=== PATIENT | male | born 1965 | race Asian ===

== ENCOUNTER 2016-12-17 04:20 | Inpatient (IN) | payer OTHER ==
[2016-12-16 14:50] LABS: HEMOGLOBIN 15.9 g/dL (13.7-18.0)
[2016-12-16 14:57] LABS: ASPARTATE AMINO TRANSFERASE 24 U/L (15-37); BLOOD UREA NITROGEN 11 mg/dL (7-18)
[~2016-12-17] VITALS: Ht 165.1 cm; Wt 89.2 kg
[~2016-12-17 04:20] MED LIST: ASPI-496 PO; CARV6.2512 PO; CLOB15CR19 TD; INSU100I28 SC; ISOS30TA19 PO; LISI-170 PO; ROSU40TA PO; SILD50TA PO; VITA100020 PO; VITA1CAP PO
[2016-12-17] MEDS ORDERED: ALBUMIN HUMAN 5% 500 ML IV ONE (04:30)
[2016-12-17] MEDS ORDERED: DO NOT GIVE MC SCH (05:00)
[2016-12-17] MEDS ORDERED: CHLORHEXIDINE MOUTHWASH 15 ML UDC MM SCH (05:00)
[2016-12-17] MEDS ORDERED: METOPROLOL TARTRATE 25 MG TABLET PO ONE (05:00)
[2016-12-17] MEDS ORDERED: MUPIROCIN OINT 2%, 22GM TP SCH (06:00)
[2016-12-17] MEDS ORDERED: INSULIN ASPART 100 UNITS/ML, PEN SQ-INSULIN SCH (06:00)
[2016-12-17 06:29] VITALS: BP 163/84
[2016-12-17] MEDS ORDERED: FENTANYL PF 1000 MCG/20ML ONE (07:28)
[2016-12-17] MEDS ORDERED: MIDAZOLAM 10MG/2 ML ONE (07:29)
[2016-12-17] MEDS ORDERED: PHENYLEPHRINE 10 MG in SODIUM CHLORIDE 0.9% 249 ML IV PRN ×2 (07:30→12:28)
[2016-12-17] MEDS ORDERED: POTASSIUM CHLORIDE 80 MEQ, SODIUM BICARBONATE 8.4% 10 MEQ, MAGNESIUM SULFATE 0.5 GM, LI... IV PRN (07:30)
[2016-12-17] MEDS ORDERED: REGULAR INSULIN 62.5 UNITS in SODIUM CHLORIDE 0.9% 249.375 ML IV PRN ×2 (07:30→12:28)
[2016-12-17] MEDS ORDERED: VANCOMYCIN 1,300 MG in SODIUM CHLORIDE 0.9% 250 ML IV PRN (07:30)
[2016-12-17] MEDS ORDERED: EPINEPHRINE 2 MG in SODIUM CHLORIDE 0.9% 248 ML IV SCH (07:30)
[2016-12-17] MEDS ORDERED: MANNITOL PMX 20% 500 ML IVPB PRN (07:30)
[2016-12-17] MEDS ORDERED: DEXMEDETOMIDINE 200 MCG in SODIUM CHLORIDE 0.9% 48 ML IV SCH (07:30)
[2016-12-17] MEDS ORDERED: CEFUROXIME 1.5 GM in SODIUM CHLORIDE 0.9% 50 ML IVPB PRN (07:30)
[2016-12-17] MEDS ORDERED: PAPAVERINE 30 MG/ML, 2ML IVPush ONE (08:56)
[2016-12-17] MEDS ORDERED: HEPARIN 1,000 UNITS/ML, 10ML IV ONE (08:58)
[2016-12-17] MEDS ORDERED: SODIUM CHLORIDE FLUSH 10ML SYR IVF SCH (09:00)
[2016-12-17] MEDS ORDERED: AMINOCAPROIC ACID 250 MG/ML, 20ML ONE (09:10)
[2016-12-17] MEDS ORDERED: CALCIUM CHLORIDE 10%, 10ML SYR ONE (09:10)
[2016-12-17] MEDS ORDERED: PROTAMINE SULFATE 10 MG/ML, 25ML ONE (09:10)
[2016-12-17] MEDS ORDERED: DESMOPRESSIN 24 MCG in SODIUM CHLORIDE 0.9% 50 ML IVPB ONE (11:15)
[2016-12-17] MEDS ORDERED: NITROGLYCERIN/D5W PMX 250 ML IV PRN (12:28)
[2016-12-17] MEDS ORDERED: SODIUM CHLORIDE 0.9% 1,000 ML IV ONE (12:28)
[2016-12-17] MEDS ORDERED: SODIUM CHLORIDE 0.9% 1,000 ML IV PRN (12:28)
[2016-12-17] MEDS ORDERED: DOBUTAMINE 250 MG in SODIUM CHLORIDE 0.9% 230 ML IV PRN (12:28)
[2016-12-17] MEDS ORDERED: DEXTROSE 4 GM TAB.CHEW PO PRN (12:30)
[2016-12-17] MEDS ORDERED: DEXTROSE 50%, 50ML SYRINGE IVPush PRN (12:30)
[2016-12-17] MEDS ORDERED: LACTATED RINGERS 500 ML IVBOLUS PRN (12:30)
[2016-12-17] MEDS ORDERED: SODIUM BICARB 8.4%, 50ML SYRINGE IV PRN (12:30)
[2016-12-17] MEDS ORDERED: ACETAMINOPHEN 325 MG TABLET PO PRN (12:30)
[2016-12-17] MEDS ORDERED: ONDANSETRON 2MG/ML, 2ML IVPush PRN (12:30)
[2016-12-17] MEDS: KSCALE TO 4.5 IV SCH ×2 (12:30→18:30)
[2016-12-17] MEDS ORDERED: BISACODYL 10 MG SUPP PR PRN (12:30)
[2016-12-17] MEDS ORDERED: MEPERIDINE/PF 25MG/0.5ML IVPush PRN (12:30)
[2016-12-17] MEDS ORDERED: MIDAZOLAM 1 MG/ML, 5ML IVPush PRN (12:30)
[2016-12-17] MEDS ORDERED: ACETAMINOPHEN 650 MG SUPP PR PRN (12:30)
[2016-12-17] MEDS ORDERED: GLUCAGON 1 MG IM PRN (12:30)
[2016-12-17] MEDS ORDERED: BISACODYL 5 MG EC TABLET PO PRN (12:30)
[2016-12-17] MEDS ORDERED: EPINEPHRINE 2 MG in SODIUM CHLORIDE 0.9% 248 ML IV PRN (12:30)
[2016-12-17] MEDS ORDERED: PROCHLORPERAZINE 5 MG/ML, 2ML IVPush PRN (12:30)
[2016-12-17] MEDS ORDERED: ALBUMIN HUMAN 25% 100 ML ONE (12:59)
[2016-12-17] MEDS ORDERED: LIDOCAINE 2% 100MG/5ML SYRINGE ONE (12:59)
[2016-12-17] MEDS ORDERED: HEPARIN 1,000 UNITS/ML, 30ML ONE (12:59)
[2016-12-17] MEDS ORDERED: AMIODARONE 50 MG/ML, 3ML ONE (12:59)
[2016-12-17] MEDS ORDERED: SODIUM BICARBONATE 1 MEQ/ML, 50ML VIAL ONE (12:59)
[2016-12-17] MEDS ORDERED: PAPAVERINE 30 MG/ML, 2ML ONE (13:00)
[2016-12-17] MEDS ORDERED: HEPARIN 1,000 UNITS/ML, 10ML ONE (13:00)
[2016-12-17 13:11] LABS: ABG COLLECTION SITE ARTERIAL LINE
[2016-12-17 13:13] LABS: HEMOGLOBIN 11.6 g/dL (13.7-18.0)
[2016-12-17] MEDS ORDERED: MORPHINE SULFATE 4 MG/ML, 1ML ONE (13:46)
[2016-12-17] MEDS: morphine SULFATE 10 MG/ML, 1ML IVPush PRN ×3 (13:50→22:48)
[2016-12-17] MEDS: MAGNESIUM SULFATE 1 GM in SODIUM CHLORIDE 0.9% 50 ML IVPB SCH (13:53)
[2016-12-17] MEDS ORDERED: ROCURONIUM 10 MG/ML ONE ×2 (15:13)
[2016-12-17 18:24] LABS: HEMOGLOBIN 12.2 g/dL (13.7-18.0)
[2016-12-17] MEDS ORDERED: POTASSIUM CHLORIDE PMX 100 ML IV ONE (19:30)
[2016-12-17] MEDS: OXYcodone IR 5MG TABLET PO PRN ×2 (19:58→23:03)
[2016-12-17] MEDS: CEFUROXIME 1.5 GM in SODIUM CHLORIDE 0.9% 50 ML IVPB SCH (20:31)
[2016-12-17] MEDS: VANCOMYCIN 1,300 MG in SODIUM CHLORIDE 0.9% 250 ML IVPB SCH (21:10)
[2016-12-17] MEDS: MUPIROCIN OINT 2%, 22GM NAS SCH (21:12)
[2016-12-17] MEDS: SODIUM CHLORIDE FLUSH 10ML SYR IVF SCH (21:12)
[2016-12-17] MEDS: DOCUSATE 100 MG CAPSULE PO SCH (21:12)
[2016-12-18] MEDS: KSCALE TO 4.5 IV SCH ×4 (00:30→18:30)
[2016-12-18] MEDS: morphine SULFATE 10 MG/ML, 1ML IVPush PRN ×5 (01:40→10:34)
[2016-12-18] MEDS ORDERED: POTASSIUM CHLORIDE PMX 100 ML IV ONE ×3 (02:00→14:30)
[2016-12-18] MEDS: OXYcodone IR 5MG TABLET PO PRN ×3 (02:23→08:17)
[2016-12-18 06:44] LABS: ABG COLLECTION SITE NOT DOCUMENTED
[2016-12-18 06:56] LABS: BLOOD UREA NITROGEN 13 mg/dL (7-18)
[2016-12-18] MEDS: CLEVIDIPINE 50 ML IV PRN ×3 (08:03→13:11)
[2016-12-18] MEDS: CEFUROXIME 1.5 GM in SODIUM CHLORIDE 0.9% 50 ML IVPB SCH (08:33)
[2016-12-18] MEDS: SODIUM CHLORIDE FLUSH 10ML SYR IVF SCH ×2 (09:00→20:00)
[2016-12-18] MEDS ORDERED: PANTOPRAZOLE 40 MG IV IVPush SCH (09:00)
[2016-12-18] MEDS: DOCUSATE 100 MG CAPSULE PO SCH ×2 (09:29→19:59)
[2016-12-18] MEDS: VANCOMYCIN 1,300 MG in SODIUM CHLORIDE 0.9% 250 ML IVPB SCH (09:29)
[2016-12-18] MEDS: ASPIRIN 81 MG TABLET EC PO SCH (09:29)
[2016-12-18] MEDS: MUPIROCIN OINT 2%, 22GM NAS SCH ×2 (09:29→19:58)
[2016-12-18] MEDS: METOPROLOL TARTRATE 25 MG TABLET PO/NG SCH ×2 (09:31→20:00)
[2016-12-18] MEDS: HYDROcodone/APAP 10/325 MG TABLET PO PRN (12:15)
[2016-12-18] MEDS: MAGNESIUM SULFATE 1 GM in SODIUM CHLORIDE 0.9% 50 ML IVPB SCH (12:15)
[2016-12-18] MEDS: CHLORHEXIDINE MOUTHWASH 15 ML UDC MM SCH ×2 (12:16→20:00)
[2016-12-18] MEDS ORDERED: CLEVIDIPINE 100 ML IV PRN (13:30)
[2016-12-18] MEDS: INSULIN ASPART 100 UNITS/ML, PEN SQ-INSULIN PRN ×6 (14:00→23:58)
[2016-12-19] MEDS: KSCALE TO 4.5 IV SCH ×2 (00:30→06:10)
[2016-12-19] MEDS: INSULIN ASPART 100 UNITS/ML, PEN SQ-INSULIN PRN ×5 (04:07→20:25)
[2016-12-19 04:41] LABS: BLOOD UREA NITROGEN 20 mg/dL (7-18)
[2016-12-19 04:53] LABS: ABG COLLECTION SITE RIGHT RADIAL; COLLATERAL CIRCULATION TESTING NORMAL
[2016-12-19] MEDS: HYDROcodone/APAP 10/325 MG TABLET PO PRN ×3 (06:40→18:56)
[2016-12-19] MEDS: MUPIROCIN OINT 2%, 22GM NAS SCH ×2 (08:16→20:25)
[2016-12-19] MEDS: DOCUSATE 100 MG CAPSULE PO SCH ×2 (08:16→20:26)
[2016-12-19] MEDS: ASPIRIN 81 MG TABLET EC PO SCH (08:16)
[2016-12-19] MEDS: PANTOPROZOLE 40MG TABLET PO SCH (08:16)
[2016-12-19] MEDS: SODIUM CHLORIDE FLUSH 10ML SYR IVF SCH ×3 (08:17→20:25)
[2016-12-19] MEDS ORDERED: METOPROLOL TARTRATE 25 MG TABLET PO/NG SCH (09:00)
[2016-12-19] MEDS ORDERED: CLOBETASOL PROPIONATE CRM 0.05%, 15GM TP PRN (10:00)
[2016-12-19] MEDS ORDERED: MAGNESIUM HYDROXIDE 8%, 30ML UDC PO PRN (10:00)
[2016-12-19] MEDS: ENOXAPARIN 40 MG/0.4 ML SQ SCH (10:45)
[2016-12-19] MEDS: FUROSEMIDE 20 MG/2 ML IV SCH ×2 (10:45→16:46)
[2016-12-19] MEDS: MAGNESIUM SULFATE 1 GM in SODIUM CHLORIDE 0.9% 50 ML IVPB SCH (12:08)
[2016-12-19] MEDS: CHLORHEXIDINE MOUTHWASH 15 ML UDC MM SCH ×2 (13:40→20:26)
[2016-12-19] MEDS: POTASSIUM CHLORIDE 20 MEQ TAB.ER.PRT PO SCH (16:46)
[2016-12-19] MEDS: CARVEDILOL 6.25 MG TABLET PO SCH (16:50)
[2016-12-19 17:24] VITALS: BP 127/83
[2016-12-19 18:45] VITALS: BP 151/79
[2016-12-19] MEDS: ATORVASTATIN 80 MG TABLET PO SCH (20:26)
[2016-12-20 01:44] VITALS: BP 99/66
[2016-12-20] MEDS: HYDROcodone/APAP 10/325 MG TABLET PO PRN ×3 (04:30→18:23)
[2016-12-20 05:31] LABS: BLOOD UREA NITROGEN 23 mg/dL (7-18)
[2016-12-20 07:40] VITALS: BP 126/81
[2016-12-20] MEDS: ENOXAPARIN 40 MG/0.4 ML SQ SCH (08:10)
[2016-12-20] MEDS: CARVEDILOL 6.25 MG TABLET PO SCH (08:11)
[2016-12-20] MEDS: DOCUSATE 100 MG CAPSULE PO SCH ×2 (08:11→21:09)
[2016-12-20] MEDS: CLOPIDOGREL 75 MG TABLET PO SCH (08:11)
[2016-12-20] MEDS: ASPIRIN 81 MG TABLET EC PO SCH (08:11)
[2016-12-20] MEDS: PANTOPROZOLE 40MG TABLET PO SCH (08:12)
[2016-12-20] MEDS: FUROSEMIDE 20 MG/2 ML IV SCH ×2 (08:12→16:21)
[2016-12-20] MEDS: POTASSIUM CHLORIDE 20 MEQ TAB.ER.PRT PO SCH ×2 (08:12→16:21)
[2016-12-20] MEDS: SODIUM CHLORIDE FLUSH 10ML SYR IVF SCH ×4 (08:12→21:10)
[2016-12-20] MEDS: MUPIROCIN OINT 2%, 22GM NAS SCH ×2 (08:13→21:11)
[2016-12-20] MEDS: INSULIN ASPART 100 UNITS/ML, PEN SQ-INSULIN PRN ×4 (08:14→21:12)
[2016-12-20] MEDS ORDERED: AMIODARONE 150 MG in DEXTROSE 5% 100 ML IV STA (09:27)
[2016-12-20] MEDS ORDERED: AMIODARONE 900 MG in DEXTROSE 5% 482 ML IV STA (09:27)
[2016-12-20] MEDS ORDERED: FILTER 0.22 MICRON IV PRN (09:30)
[2016-12-20] MEDS ORDERED: AMIODARONE 150 MG in DEXTROSE 5% 100 ML IV ONE (09:30)
[2016-12-20] MEDS: AMIODARONE 900 MG in DEXTROSE 5% 482 ML IV PRN (09:36)
[2016-12-20] MEDS: INSULIN DETEMIR 100 UNITS/ML, PEN SQ-INSULIN SCH (09:54)
[2016-12-20 13:18] VITALS: BP 96/65
[2016-12-20] MEDS: METOPROLOL TARTRATE 25 MG TABLET PO SCH (17:27)
[2016-12-20 20:00] VITALS: BP 147/82
[2016-12-20] MEDS: ATORVASTATIN 80 MG TABLET PO SCH (21:10)
[2016-12-21 02:09] VITALS: BP 120/81
[2016-12-21] MEDS: HYDROcodone/APAP 10/325 MG TABLET PO PRN ×3 (05:10→18:32)
[2016-12-21] MEDS: METOPROLOL TARTRATE 25 MG TABLET PO SCH ×2 (05:10→18:19)
[2016-12-21 05:30] LABS: HEMOGLOBIN 11.1 g/dL (13.7-18.0)
[2016-12-21 05:32] LABS: BLOOD UREA NITROGEN 23 mg/dL (7-18)
[2016-12-21] MEDS: AMIODARONE 900 MG in DEXTROSE 5% 482 ML IV PRN (07:42)
[2016-12-21 07:46] VITALS: BP 114/74
[2016-12-21] MEDS ORDERED: POTASSIUM CHLORIDE 20 MEQ TAB.ER.PRT PO ONE (08:30)
[2016-12-21] MEDS: SODIUM CHLORIDE FLUSH 10ML SYR IVF SCH ×4 (09:00→21:04)
[2016-12-21] MEDS: INSULIN DETEMIR 100 UNITS/ML, PEN SQ-INSULIN SCH (09:38)
[2016-12-21] MEDS: ENOXAPARIN 40 MG/0.4 ML SQ SCH (09:39)
[2016-12-21] MEDS: MUPIROCIN OINT 2%, 22GM NAS SCH ×2 (09:39→21:00)
[2016-12-21] MEDS: DOCUSATE 100 MG CAPSULE PO SCH ×2 (09:40→21:04)
[2016-12-21] MEDS: FUROSEMIDE 20 MG/2 ML IV SCH ×2 (09:40→18:19)
[2016-12-21] MEDS: ASPIRIN 81 MG TABLET EC PO SCH (09:40)
[2016-12-21] MEDS: CLOPIDOGREL 75 MG TABLET PO SCH (09:40)
[2016-12-21] MEDS: POTASSIUM CHLORIDE 20 MEQ TAB.ER.PRT PO SCH ×2 (09:40→18:19)
[2016-12-21] MEDS: AMIODARONE 200 MG TABLET PO SCH ×2 (09:41→21:05)
[2016-12-21] MEDS: PANTOPROZOLE 40MG TABLET PO SCH (09:54)
[2016-12-21] MEDS: INSULIN ASPART 100 UNITS/ML, PEN SQ-INSULIN PRN ×3 (12:56→21:06)
[2016-12-21 15:40] VITALS: BP 120/75
[2016-12-21 20:00] VITALS: BP 127/76
[2016-12-21] MEDS: ATORVASTATIN 80 MG TABLET PO SCH (21:05)
[2016-12-22 02:46] VITALS: BP 115/78
[2016-12-22] MEDS: METOPROLOL TARTRATE 25 MG TABLET PO SCH (06:18)
[2016-12-22 06:21] LABS: BLOOD UREA NITROGEN 21 mg/dL (7-18)
[2016-12-22] MEDS ORDERED: CLOP75TA PO (07:38)
[2016-12-22] MEDS ORDERED: POTA20TA89 PO (07:38)
[2016-12-22] MEDS ORDERED: METO25TA35 PO (07:38)
[2016-12-22] MEDS ORDERED: AMIO200T42 PO (07:38)
[2016-12-22] MEDS ORDERED: DOCU-30 PO (07:38)
[2016-12-22] MEDS ORDERED: FURO40TA6 PO (07:38)
[2016-12-22 08:10] VITALS: BP 119/76
[2016-12-22] MEDS ORDERED: HYDROcodone/APAP 5/325 TABLET ONE (08:29)
[2016-12-22] MEDS: INSULIN ASPART 100 UNITS/ML, PEN SQ-INSULIN PRN (08:33)
[2016-12-22] MEDS: HYDROcodone/APAP 10/325 MG TABLET PO PRN (08:33)
[2016-12-22] MEDS: FUROSEMIDE 20 MG/2 ML IV SCH (08:53)
[2016-12-22] MEDS: AMIODARONE 200 MG TABLET PO SCH (08:53)
[2016-12-22] MEDS: PANTOPROZOLE 40MG TABLET PO SCH (08:53)
[2016-12-22] MEDS: POTASSIUM CHLORIDE 20 MEQ TAB.ER.PRT PO SCH (08:54)
[2016-12-22] MEDS: CLOPIDOGREL 75 MG TABLET PO SCH (08:54)
[2016-12-22] MEDS: DOCUSATE 100 MG CAPSULE PO SCH (08:54)
[2016-12-22] MEDS: ENOXAPARIN 40 MG/0.4 ML SQ SCH (08:54)
[2016-12-22] MEDS: ASPIRIN 81 MG TABLET EC PO SCH (08:54)
[2016-12-22] MEDS: INSULIN DETEMIR 100 UNITS/ML, PEN SQ-INSULIN SCH (08:56)
[2016-12-22] MEDS: MUPIROCIN OINT 2%, 22GM NAS SCH (08:59)
[2016-12-22] MEDS: SODIUM CHLORIDE FLUSH 10ML SYR IVF SCH ×2 (08:59)
== END 2016-12-22 12:40 | disposition home health service (06) | DRG 236 ==
LOC: 5SO 04:20 → CCU 08:52 → CSU 10:21 → 5SO 12-19 14:22 → DCLOUNGE 12-22 11:52
PROVIDERS: ADMIT Thoracic Surgery (Cardiothoracic Vascular Surgery); ATTEND Thoracic Surgery (Cardiothoracic Vascular Surgery)
PROC: 0T9B70Z Drainage of Bladder with Drainage Device, Via Natural or Artificial Opening (ICD-10-PCS; 2016-12-16)
PROC: 02100Z9 Bypass Coronary Artery, One Artery from Left Internal Mammary, Open Approach (ICD-10-PCS; 2016-12-17)
PROC: 06BP4ZZ Excision of Right Saphenous Vein, Percutaneous Endoscopic Approach (ICD-10-PCS; 2016-12-17)
PROC: 5A1221Z Performance of Cardiac Output, Continuous (ICD-10-PCS; 2016-12-17)
PROC: B246ZZ4 Ultrasonography of Right and Left Heart, Transesophageal (ICD-10-PCS; 2016-12-17)
PROC: 021209W Bypass Coronary Artery, Three Arteries from Aorta with Autologous Venous Tissue, Open Approach (ICD-10-PCS; principal; 2016-12-17 08:00)
DX: I25.119 Atherosclerotic heart disease of native coronary artery with unspecified angina pectoris (principal); E11.9 Type 2 diabetes mellitus without complications; I10 Essential (primary) hypertension; E78.5 Hyperlipidemia, unspecified; E78.00 Pure hypercholesterolemia, unspecified; F17.200 Nicotine dependence, unspecified, uncomplicated; I48.0 Paroxysmal atrial fibrillation; Z79.4 Long term (current) use of insulin; Z82.49 Family history of ischemic heart disease and other diseases of the circulatory system; Z83.3 Family history of diabetes mellitus; Z79.82 Long term (current) use of aspirin; Z79.899 Other long term (current) drug therapy
CPT/HCPCS: 36415; 36600; 71010; 71020; 80048; 80053; 81003; 82040; 82330; 82800; 82803; 82810; 82947; 82962; 83036; 83735; 84132; 84295; 85014; 85018; 85025; 85049; 85347; 85610; 85730; 86850; 86900; 86923; 87081; 93005; 93312; 93321; 93325; 93970; 94002; 94150; C1725; C1760; J0697; J1644; J1650; J1815; J2175; J2250; J2405; J2597; J2720; J3010; J3370; J3475; J3480; J3490; J7120; P9045; P9047; C1751; C9113; C9248; J0171; J0282; J1940; J2270; J2370; J2440; J7030; J7050; J7060